=== PATIENT | male | born 1980 | race Caucasian/White ===

== ENCOUNTER 2020-08-28 11:40 | Emergency (ER) | payer SELFPAY ==
[~2020-08-28] VITALS: Ht 190.5 cm; Wt 113.4 kg
--- NOTE | 2020-08-28 12:11 | PHYS DOC ---
General Adult EDM: Chief Complaint: SHORTNESS OF BREATH HPI: HPI: Patient is a 40 year old male who presents with had Covid on August 15 and states he has gotten better and he has done quarantine and he called Dr. Fonseca because yesterday he just started feeling bad again. He states that his whole c hest just feels tight in it is slightly painful. He states that now when he gets up to walk around he is getting very short of breath. He states before he did have the shortness of breath he was just fatigued. He states now he actually has the shortness of breath. He states that he started coughing up some green and slight blood-tinged mucus earlier. He states that when he is up and moving certain short of breath that he gets slightly lightheaded. States that he has no pain at this time but he is just short of air in his chest just feels tight. He has a history of hypertension ADHD. He states that Dr. Fonseca told him to come in today to be evaluated. Review of Systems: Review of Systems: Constitutional: Denies fever or chills. [] Eyes: Denies change in visual acuity. [] HENT: Denies nasal congestion or sore throat. [] Respiratory: + cough or +shortness of breath. [] Cardiovascular: + chest pain or denies edema. [] GI: Denies abdominal pain, nausea, vomiting, bloody stools or diarrhea. [] : Denies dysuria. [] Musculoskeletal: Denies back pain or joint pain. [] Integument: Denies rash. [] Neurologic: Denies headache, focal weakness or sensory changes. [] Endocrine: Denies polyuria or polydipsia. [] Lymphatic: Denies swollen glands. [] Psychiatric: Denies depression or anxiety. [] Heart Score: Risk Factors: Risk Factors: DM, Current or recent (<one month) smoker, HTN, HLP, family history of CAD, obesity. Risk Scores: Score 0 - 3: 2.5% MACE over next 6 weeks - Discharge Home Score 4 - 6: 20.3% MACE over next 6 weeks - Admit for Clinical Observation Score 7 - 10: 72.7% MACE over next 6 weeks - Early Invasive Strategies Current Medications: Current Medications Medications (Trade) Dose Ordered Sig/Gio Start Time Stop Time Status Last Admin Dose Admin Methylprednisolone Sodium Succinate (SOLU-Medrol 125MG VIAL) 125 mg 1X ONCE 08/28/20 12:15 08/28/20 12:16 UNV Sodium Chloride 1,000 ml @ 1,000 mls/hr Q1H 08/28/20 12:15 08/28/20 13:14 UNV Physical Exam: PE: Constitutional: Well developed, well nourished, no acute distress, non-toxic appearance. [] HENT: Normocephalic, atraumatic, bilateral external ears normal, oropharynx moist, no oral exudates, nose normal. [] Eyes: PERRLA, EOMI, conjunctiva normal, no discharge. [] Neck: Normal range of motion, no tenderness, supple, no stridor. [] Cardiovascular:Heart rate regular rhythm, no murmur [] Lungs & Thorax: Bilateral upper breath sounds clear lower diminished to auscultation [] Abdomen: Bowel sounds normal, soft, no tenderness, no masses, no pulsatile masses. [] Skin: Warm, dry, no erythema, no rash. [] Back: No tenderness, no CVA tenderness. [] Extremities: No tenderness, no cyanosis, no clubbing, ROM intact, no edema. [] Neurologic: Alert and oriented X 3, normal motor function, normal sensory function, no focal deficits noted. [] Psychologic: Affect normal, judgement normal, mood normal. [] EKG: EK and read by Dr. Garrido as sinus rhythm and no STEMI [] Radiology/Procedures: Radiology/Procedures: [] Impression: [facility] [address] [place] [address] IMAGING REPORT Signed PATIENT: JOEY CHANG ACCOUNT: [id number] : 1980 LOCATION: ER AGE: 40 SEX: M EXAM STATUS: REG ER ORD. PHYSICIAN: KEARA OSPINA SIGNALS OFFICER REASON: increase in soa, post covid PROCEDURE: PORTABLE CHEST 1V Exam performed: CT pulmonary angiogram of the chest with contrast an single view chest Date: 08/28/2020. Comparison:None available Indication: Post Covid, increasing shortness of breath Technique: Contiguous helical acquisitions are obtained through the chest during intravenous administration of [ 100 ] cc of [ Omnipaque 300 ] . [Sagittal and coronal reformatted and] MIP images were obtained and reviewed Findings: The structures at the thoracic inlet including both lobes of the thyroid gland appear normal. There is somewhat suboptimal opacification of the pulmonary arteries, however normal filling defect is seen within the main pulmonary artery or proximal segmental branches The heart is normal in size. No pericardial effusion is seen. No mediastinal or hilar lymphadenopathy is seen. There are diffuse patchy groundglass infiltrates scattered throughout both lungs. There is no pleural effusion or pneumothorax. Upper abdominal structures appear unremarkable. Osseous structures appear intact. Impression: 1. Diffuse groundglass infiltrates seen throughout both lungs 2. No convincing evidence of pulmonary embolism seen although evaluation is somewhat limited due to suboptimal contrast in the subsegmental pulmonary arteries. PQRS Compliance Statement: One or more of the following individualized dose reduction techniques were utilized for this examination: 1. Automated exposure control 2. Adjustment of the mA and/or kV according to patient size 3. Use of iterative reconstruction technique End impression Single view chest findings: Single AP upright portable view of the chest is obtained. Heart size and mediastinal silhouette is within limits of normal. Pulmonary vascularity is unremarkable. There are mild bilateral infiltrates. No pleural effusion or pneumothorax is seen. IMPRESSION: Mild bilateral infiltrates. Electronically signed by: Sahron Cash MD (08/28/2020 1:32 PM) [id number] DICTATED and SIGNED BY: SHARON CASH MD DATE: 08/28/20 [id number] 0 Course & Med Decision Making: Course & Med Decision Making Pertinent Labs and Imaging studies reviewed. (See chart for details) See HPI. Afebrile. Speaks in full complete sentences. Alert and oriented x4. Ambulatory with steady gait. Skin pink warm and dry. Lungs are clear in upper lobes and diminished in lower lobes. Patient denies nausea, vomiting, diarrhea, lack of appetite, syncope, headache, vision changes, numbness or tingling, focal weakness, abdominal pain, back pain. X-ray shows pneumonia. He will be sent home with azithromycin, Medrol Dosepak, ProAir inhaler. Blood work unremarkable. Patient is satting 98% on room air. He is afebrile. Patient Is in no respiratory distress. [] Dragon Disclaimer: Dragon Disclaimer: This electronic medical record was generated, in whole or in part, using a voice recognition dictation system. Departure Departure Impression: Primary Impression: Pneumonia Qualified Codes: J18.9 - Pneumonia, unspecified organism Disposition: 01 DC HOME SELF CARE/HOMELESS Condition: STABLE Referrals: GENNY FONSECA MD (PCP) Patient Instructions: Pneumonia, Adult Additional Instructions: Follow-up with primary care provider. Take medication as prescribed and with food. Drink plenty of fluids. If you begin having severe shortness of breath and chest pain return to the emergency room. Scripts Albuterol Sulfate (PROAIR HFA INHALER) 8.5 Gm Hfa.aer.ad 1 PUFF INH PRN Q6HRS PRN for SHORTNESS OF BREATH, #1 INHALER 0 Refills Prov: KEARA OSPINA SIGNALS OFFICER 08/28/20 Azithromycin (AZITHROMYCIN TABLET) 250 Mg Tablet 1 PKG PO UD for 5 Days, #6 TAB 0 Refills 2 the first day followed by 1 for days 2-5 Prov: KEARA OSPINA SIGNALS OFFICER 08/28/20 Methylprednisolone (MEDROL) 4 Mg Tab.ds.pk 1 PKG PO UD, #1 PKG Prov: KEARA OSPINA SIGNALS OFFICER 08/28/20 KEARA OSPINA APRN Aug 28, 2020 12:11
[2020-08-28] MEDS ORDERED: IV NORMAL SALINE 1000ML BAG 1,000 ML IV SCH (12:15)
[2020-08-28] MEDS ORDERED: methylPREDNISolone SOD SUCC PF 125 MG/2 ML VIAL. IV ONE (12:15)
[2020-08-28 12:31] LABS: BASO % 1 % (0-3); EOS # 0.1 x10^3/uL (0.0-0.7); EOS % 1 % (0-3); HEMATOCRIT 48.6 % (39.0-53.0); HEMOGLOBIN 16.6 g/dL (13.0-17.5); LYMPH # 1.8 x10^3/uL (1.0-4.8); LYMPH % 31 % (24-48); MEAN CORPUSCULAR HEMOGLOBIN 29 pg (25-35); MEAN CORPUSCULAR HGB CONC 34 g/dL (31-37); MEAN CORPUSCULAR VOLUME 86 fL (79-100); MONO # 0.7 x10^3/uL (0.0-1.1); MONO % 13 % (0-9); NEUT # 3.1 x10^3/uL (1.8-7.7); NEUT % 54 % (31-73); PLATELET COUNT 191 x10^3/uL (140-400); RED BLOOD COUNT 5.66 x10^6/uL (4.30-5.70); RED CELL DISTRIBUTION WIDTH 13.3 % (11.5-14.5); WHITE BLOOD COUNT 5.8 x10^3/uL (4.0-11.0)
[2020-08-28 12:34] LABS: CALCIUM 8.8 mg/dL (8.5-10.1); CREATININE 1.1 mg/dL (0.7-1.3); GFR 73.4
[2020-08-28 12:39] LABS: ALBUMIN 3.3 g/dL (3.4-5.0); ALBUMIN/GLOBULIN RATIO 0.8 (1.0-1.7); TOTAL BILIRUBIN 0.3 mg/dL (0.2-1.0); TOTAL PROTEIN 7.5 g/dL (6.4-8.2)
[2020-08-28 12:55] LABS: PLT ESTIMATE ADEQUATE (ADEQUATE)
[2020-08-28] MEDS ORDERED: IOHEXOL 350 MG/ML 100 ML VIAL. IV ONE (13:00)
[2020-08-28] MEDS ORDERED: CONTRAST GIVEN. MC PRN (13:00)
[2020-08-28 13:30] VITALS: BP 140/76
--- NOTE | 2020-08-28 13:35 | RAD ---
Exam performed: CT pulmonary angiogram of the chest with contrast an single view chest Date: 08/28/2020. Comparison:None available Indication: Post Covid, increasing shortness of breath Technique: Contiguous helical acquisitions are obtained through the chest during intravenous administ ration of [ 100 ] cc of [ Omnipaque 300 ] . [Sagittal and coronal reformatted and] MIP images we re obtained and reviewed Findings: The structures at the thoracic inlet including both lobes of the thyroid gland appear normal. There is somewhat suboptimal opacification of the pulmonary arteries, however normal filling defect i s seen within the main pulmonary artery or proximal segmental branches The heart is normal in size. No pericardial effusion is seen. No mediastinal or hilar lymphadenopathy is seen. There are diffuse patchy groundglass infiltrates scattered throughout both lungs. There is no pleural effusion or pneumothorax. Upper abdominal structures appear unremarkable. Osseous structures appear intact. Impression: 1. Diffuse groundglass infiltrates seen throughout both lungs 2. No convincing evidence of pulmonary embolism seen although evaluation is somewhat limited due to s uboptimal contrast in the subsegmental pulmonary arteries. PQRS Compliance Statement: One or more of the following individualized dose reduction techniques were utilized for this examinat ion: 1. Automated exposure control 2. Adjustment of the mA and/or kV according to patient size 3. Use of iterative reconstruction technique End impression Single view chest findings: Single AP upright portable view of the chest is obtained. Heart size and mediastinal silhouette is wi thin limits of normal. Pulmonary vascularity is unremarkable. There are mild bilateral infiltrates. N o pleural effusion or pneumothorax is seen. IMPRESSION: Mild bilateral infiltrates. Electronically signed by: Sharon Cash MD (08/28/2020 1:32 PM) [id number]
[2020-08-28] MEDS ORDERED: ALBU2.5V8 INH (13:44)
[2020-08-28] MEDS ORDERED: AZIT250T6 PO (13:44)
[2020-08-28] MEDS ORDERED: METH4TAB2 PO (13:44)
--- NOTE | 2020-08-29 07:08 | EKG ---
[facility] [address] [place] [address] Test Date: 2020-08-28 Test Time: 13:34:32 Pat Name: JOEY CHANG Department: Room: Gender: M Smog Technician: : 1980 Requested By: KEARA OSPINA Order Number: [id number] Reading MD: Measurements Intervals Dugger Rate: 68 P: 59 MD: 142 QRS: 29 QRSD: 90 T: 34 QT: 386 QTc: 411 Interpretive Statements SINUS RHYTHM NORMAL ECG RI6.02 Compared to ECG 09/26/2012 15:49:44 No significant changes
== END 2020-08-28 13:59 | disposition home or self-care (01) ==
LOC: ER 11:40
DX: J18.9 Pneumonia, unspecified organism (principal); R06.02 Shortness of breath; R05 Cough; R53.83 Other fatigue; I10 Essential (primary) hypertension; R42 Dizziness and giddiness
CPT/HCPCS: 36415; 71045; 71275; 80053; 83690; 83880; 84484; 85025; 93005; 96361; 96374; 99285; J2930; J7030; Q9967